=== PATIENT | male | born 1960 | race Caucasian/White ===

== ENCOUNTER 2020-07-16 11:54 | Emergency (ER) | payer OTHER, SELFPAY ==
[2020-07-16] VITALS (23 sets, daily range): BP systolic 173–226; BP diastolic 86–115; PULSE 70–84; RESP 13–27; TEMP 37; O2SAT 95–98
--- NOTE | ~2020-07-16 | CT_ITS ---
EXAMINATION: CT brain wo con DATE: 07/16/2020 15:18 INDICATION: Confusion. Headache. TECHNIQUE: Computed tomography (CT) of the head was performed without intravenous contrast. The mA wa s adjusted according to patient size. Iterative reconstruction technique was employed. The dose-lengt h product was 605.33 mGy-cm. COMPARISON: None FINDINGS: There are scattered areas of low attenuation in the cerebral white matter. There are old la cunar infarcts in the right basal ganglia and right thalamus. There is no intracranial hemorrhage, ac griffin infarction, or abnormal intracranial mass lesion. The ventricles are normal in size. There is mil d mucosal thickening in the ethmoid sinuses. The mastoid air cells are normal. The orbits are normal. IMPRESSION: 1. Old lacunar infarcts in the right basal ganglia and right thalamus. 2. Moderate nonspecific cerebral white matter disease, which likely represents chronic small vessel i schemic disease. Reviewed, dictated and finalized at location A. IMPRESSION: 1. Old lacunar infarcts in the right basal ganglia and right thalamus. 2. Moderate nonspecific cerebral white matter disease, which likely represents chronic small vessel ischemic disease.
--- NOTE | ~2020-07-16 | XR_ITS ---
EXAMINATION: XR chest 1V portable EXAM DATE: 07/16/2020 14:55 INDICATION: Lower extremity swelling. TECHNIQUE: Portable AP frontal chest x-ray was obtained. There is no prior study for comparison. FINDINGS: There is mild cardiomegaly and pulmonary vascular congestion. No confluent consolidation, p neumothorax or pleural effusion suspected. There are no osseous abnormalities identified. IMPRESSION: Cardiomegaly, pulmonary vascular congestion. Reviewed, dictated and finalized at location A.
[2020-07-16 12:39] LABS: Basophils Absolute Auto 0.1 K/mm3 (0.0-0.1); Basophils Percent Auto 0.6 % (0.2-1.2); Eosinophils Absolute Auto 0.2 K/mm3 (0-0.3); Eosinophils Percent Auto 2.1 % (0-4.4); Hematocrit 47.9 % (42.0-52.0); Hemoglobin 16.4 g/dL (14.0-18.0); Immature Granulocyte Absolute 0.05 K/mm3 (0.00-0.031); Immature Granulocyte Percent A 0.5 % (0-0.5); Lymphocytes Percent Auto 16.9 % (18.3-44.2); Mean Corpuscular HGB Conc 34.2 g/dl (32-36); Mean Corpuscular Hemoglobin 30.1 pg (26-34); Mean Corpuscular Volume 87.9 fl (80-100); Mean Platelet Volume 9.3 fl (7.4-10.4); Monocytes Absolute Auto 0.9 K/mm3 (0.1-0.6); Monocytes Percent Auto 9.5 % (2.6-8.5); Neutrophils Absolute Auto 6.7 K/mm3 (1.3-6.7); Neutrophils Percent Auto 70.4 % (45.5-73.1); Platelet Count Result 343 k/mm3 (150-375); Red Blood Count 5.45 M/mm3 (4.6-6.20); Red Cell Distribution Width 14.7 % (11.5-14.5); White Blood Count 9.5 K/mm3 (4.5-10.0)
[2020-07-16 12:50] LABS: Anion Gap 7 mmol/L (8-16); Blood Urea Nitrogen 20 mg/dL (9-20); Calcium 9.1 mg/dL (8.4-10.2); Carbon Dioxide 24 mmol/L (22-30); Chloride 107 mmol/L (98-107); Estimated CRCL calculation 95 ml/min; Estimated Glomerular Filt Rate > 60; Glucose 108 mg/dL (75-110); Potassium 4.1 mmol/L (3.4-5.0); Sodium 138 mmol/L (137-145)
[2020-07-16 13:13] LABS: Add Urine Microscopic? YES; Appearance Urine Clear (Clear); Bilirubin Urine Negative (Negative); Blood Urine Negative (Negative); Color Urine Yellow (Yellow); Glucose Urine UA Negative (Negative); Ketones Urine Negative (Negative); Leukocyte Esterase Ur Negative LEU/UL (Negative); Mucus Urine Rare /lpf; Nitrate Urine Negative (Negative); Protein Urine 2+ mg/dL (Negative); RBC Urine 0-2 /hpf (0-2); Specific Grav Ur 1.019 (1.001-1.035); WBC Urine 0-3 /hpf
[2020-07-16 14:17] LABS: NT Pro B Type Natriuretic Pept 550 PG/ML (5-100)
[2020-07-16 14:28] LABS: Alanine Aminotransferase 21 U/L (4-50); Albumin Level 4.4 g/dL (3.5-5.1); Alkaline Phosphatase 90 U/L (38-126); Aspartate Amino Transferase 28 U/L (17-59); Bilirubin,Total 0.7 mg/dL (0.2-1.3)
[2020-07-16] MEDS: hydrALAZINE HCL 20 MG/ML VIAL 10 MG IV PUSH (15:41)
[2020-07-16] MEDS: FUROSEMIDE INJ 40 MG/4 ML VIAL IV PUSH (15:42)
--- NOTE | 2020-07-16 16:08 | ED.GENADULT ---
HPI - General Adult General Chief complaint: Urogenital-Male Stated complaint: sent here for htn Time Seen by Provider: 07/16/20 14:31 History of Present Illness HPI narrative: Patient is a 59-year-old male who was referred here by his PCP for concerns of CHF and uncontrolled hypertension. Patient has history of hypertension he is noncompliant with his hypertensive medications at home. He is unsure what the name of his medications are. He reports today he is also been more confused than typical. 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 He reports he did have a cardiac catheterization last 3 to 4 months by his bridge gang worker Dr. Rodríguez which showed 20% stenosis of the vessels and he required no stenting. Today while he was at his PCPs office he was found to have a systolic blood pressure of 250. Related Data Allergies Allergy/AdvReac Type Severity Reaction Status Date / Time Unable to Assess Allergy Verified 07/16/20 15:34 Review of Systems Review of Systems: All systems reviewed & are unremarkable except as noted in HPI and below Constitutional: Constitutional: Denies chills, Denies fever(s) and Denies weakness ENT: Denies nasal congestion and Denies sore throat Cardiovascular: Cardiovascular: Denies chest pain, Denies rapid heart rate and Denies radiating jaw, neck or arm pain Respiratory: Respiratory: Denies cough and Denies dyspnea Comments: Orthopnea Gastrointestinal: Gastrointestinal: Denies abdominal pain, Denies nausea and Denies vomiting Musculoskeletal: Comments: Lower extremity edema. Neurologic: Reports confusion, Denies headache(s), Denies focal weakness and Denies numbness PMFSH Past Medical History Medical History (Updated 07/16/20 @ 21:53 by Pablo Thapa MD) Hypertension Surgical History Surgical History (Updated 07/16/20 @ 21:54 by Pablo Thapa MD) History of left heart catheterization Social History Social History (Updated 07/16/20 @ 21:54 by Pablo Thapa MD) Social History: Lives at home, daughter is an FINANCIAL ANALYST INTERN. Substance use: never Gender identity (if verbalized by the patient): Male Exam Narrative: Exam Narrative: GENERAL: Well-appearing, well-nourished, and in no acute distress. HEAD: Normocephalic, atraumatic. EYES: PERRL and EOMI. ENT: Mucous membranes moist. CHEST: Clear to auscultation. No respiratory distress. HEART: Regular rate and rhythm. Normal peripheral pulses. ABDOMEN: Soft, nontender, nondistended. EXTREMITIES: Normal range of motion. 2+ edema. SKIN: Warm, dry, no rash. Small skin tag in the inguinal fold on the left side without appearance of infection. NEURO: Alert and oriented x3. Ambulates with steady gait. No focal weakness. Course Course Emergency Course: Discussed results with patient and need for hospitalization for blood pressure control and echocardiogram for CHF. Patient verbalized understanding. Little while later prior to going up to the room patient decided he wanted to leave AGAINST MEDICAL ADVICE and verbalized understanding that he could abruptly decline in his condition and or suffer permanent disability. Vital Signs Vital signs: Vital Signs Temperature 98.6 F 07/16/20 12:25 Pulse Rate 84 07/16/20 12:25 Respiratory Rate 16 07/16/20 12:25 Blood Pressure 203/106 H 07/16/20 12:25 Pulse Oximetry 95 07/16/20 12:25 Temperature 98.6 F 07/16/20 12:25 Pulse Rate 73 07/16/20 17:32 Respiratory Rate 19 07/16/20 17:32 Blood Pressure 188/95 H 07/16/20 17:32 Pulse Oximetry 98 07/16/20 16:33 Medical Decision Making Vital Signs Vital Signs: Vital Signs Temperature 98.6 F 07/16/20 12:25 Pulse Rate 84 07/16/20 12:25 Respiratory Rate 16 07/16/20 12:25 Blood Pressure 203/106 H 07/16/20 12:25 Pulse Oximetry 95 07/16/20 12:25 Temperature 98.6 F 07/16/20 12:25 P
--- NOTE | 2020-07-16 17:48 | PC.NURSE ---
174 - Report called to MANUEL Boyd.
--- NOTE | 2020-07-16 18:50 | PC.NURSE ---
1850 - Patient refusing to go upstairs and be admitted. MD Thapa spoke with patient. Patient continues to refuse to be admitted and allow for transport upstairs to his room. Risks of leaving against medical advice discussed at length with patient per AMA paperwork completed by MD Thapa. Patient instructed to call an ambulance or come back to ER for any symptoms. Patient verbalizes understanding of all risks of leaving against medical advice. Patient ambulatory to ER exit.
== END 2020-07-16 18:53 | disposition left against medical advice (07) ==
LOC: ANHED 14:42 → ANHIMU 21:56
PROVIDERS: Physician Assistant; Emergency Provider Emergency Medicine; Visit Provider Internal Medicine
DX: I11.0 Hypertensive heart disease with heart failure (principal); I50.9 Heart failure, unspecified; I67.4 Hypertensive encephalopathy; R90.82 White matter disease, unspecified; I51.7 Cardiomegaly
CPT/HCPCS: 36415; 70450; 71045; 80048; 80076; 81001; 83880; 85025; 96374; 96375; 99284; J0360; J1940